=== PATIENT | female | born 1990 | race Hispanic/Latino ===

== ENCOUNTER 2017-06-03 18:05 | Emergency (ER) | payer OTHER ==
[2017-06-03 18:14] VITALS: RESP 16
[2017-06-03] MEDS ORDERED: Albuterol-Ipratrop 3 mg / 0.5 (3 ml) UD INH STA (19:37)
[2017-06-03] MEDS ORDERED: Magnesium Sulfate 2 gm/50 ml 2 GM/50 ML BAG IV STA (19:37)
[2017-06-03] MEDS ORDERED: Promethazine/Cod 6.25mg-10mg/5ml Syr UD PO STA (19:37)
[2017-06-03] MEDS ORDERED: Sodium Chloride 0.9% 1,000 ML IV STA (19:52)
--- NOTE | 2017-06-03 19:59 | ED PDOC ---
HPI: SOB/CHF/COPD Time Seen by Provider: 06/03/17 19:23 Chief Complaint (Nursing): Shortness Of Breath Chief Complaint (Provider): Flu-like symptoms History Per: Patient History/Exam Limitations: no limitations Onset/Duration Of Symptoms: Days (x2) Current Symptoms Are (Timing): Still Present Additional Complaint(s): 26 y/o female with a past medical history of asthma, who presents to the ED complaining of flu-like symptoms x2 days. Patient confirms cough, shortness of breathing, chest tightness, headaches, body aches, and chills. Denies any fever. Patient states she went to [email or web address] yesterday and was given a nebulizer treatment with improvement of symptoms. States her symptoms worsened today and she went to Urgent Care where she was referred to the ED after receiving 2 nebulizer treatments without relief. States she was given a CXR at Urgent Care. Past Medical History Reviewed: Historical Data, Nursing Documentation, Vital Signs Vital Signs: Last Vital Signs Temp 100.0 F H 06/03/17 21:09 Pulse 104 H 06/03/17 18:12 Resp 16 06/03/17 18:12 BP 144/77 06/03/17 18:12 Pulse Ox 100 06/03/17 20:43 - Medical History PMH: Asthma - Surgical History Surgical History: Appendectomy Other surgeries: Tonsillectomy, benign mandibular tumor - Family History Family History: States: Unknown Family Hx - Social History Current smoker - smoking cessation education provided: No Alcohol: None Drugs: Denies - Home Medications Home Medications: Ambulatory Orders Medication Instructions Recorded Albuterol HFA [Ventolin HFA 90 1 - 2 puff IH Q6 PRN #1 inhaler 06/03/17 mcg/actuation (8 g)] Benzonatate [Tessalon Perle] 100 mg PO TID PRN #15 capsule 06/03/17 Methylprednisolone [Medrol Dosepak] 4 mg PO ASDIR #1 pkg 06/03/17 Oseltamivir [Tamiflu] 75 mg PO BID #10 cap 06/03/17 levoFLOXacin [Levaquin] 500 mg PO DAILY #9 tab 06/03/17 - Allergies Allergies/Adverse Reactions: Allergies Allergy/AdvReac Type Severity Reaction Status Date / Time No Known Allergies Allergy Verified 06/03/17 18:12 Review of Systems ROS Statement: Except As Marked, All Systems Reviewed And Found Negative Constitutional: Positive for: Chills, Malaise, Other (body aches). Negative for : Fever Cardiovascular: Positive for: Other (chest tightness) Respiratory: Positive for: Cough, Shortness of Breath Neurological: Positive for: Headache Physical Exam - Reviewed Nursing Documentation Reviewed: Yes Vital Signs Reviewed: Yes (fever) - Physical Exam Appears: Positive for: Non-toxic, No Acute Distress Head Exam: Positive for: ATRAUMATIC, NORMAL INSPECTION, NORMOCEPHALIC Skin: Positive for: Normal Color, Warm, Dry. Negative for: Rash Eye Exam: Positive for: EOMI, Normal appearance, PERRL Neck: Positive for: Normal, Painless ROM, Supple Cardiovascular/Chest: Positive for: Tachycardia. Negative for: Murmur Respiratory: Positive for: Crackles (some present at right base), Wheezing ( bilateral expiratory) Gastrointestinal/Abdominal: Positive for: Normal Exam, Bowel Sounds, Soft. Negative for: Tenderness Back: Positive for: Normal Inspection. Negative for: L CVA Tenderness, R CVA Tenderness, Vertebral Tenderness Extremity: Positive for: Normal ROM. Negative for: Pedal Edema, Deformity Neurologic/Psych: Positive for: Alert, Oriented (x3). Negative for: Motor/ Sensory Deficits - Laboratory Results Result Diagrams: 06/03/17 20:03 06/03/17 20:03 - ECG O2 Sat by Pulse Oximetry: 100 (RA) Pulse Ox Interpretation: Normal Medical Decision Making Medical Decision Making: Time: 19:37 Initial Impression: 26 y/o female with acute cough and SOB in setting of flu- like symptoms Initial Plan: --EKG --CMP --Lact acid, plasma --CBC w/ differential --ED test --Duoneb 9ml INH --Magnesium Sulfate 2gm in 50 ml IV --Fluid bolus --Promethazine/Codeine 10 mg PO --Prednisone 125 mg IVP --Tylenol 975 mg PO --Blood culture --Heplock --Influenza A B --Peak flow pre/post tx --Reevaluation --Provider deferred CXR as patient provided negative report of previous CXR. Time: 21:45 Patient reports marked improvement of symptoms and is medically stable for discharge. Patient will follow up with PMD and states her father is an Orthopedist and has a friend who is a Security Engineer, who she will follow up with as well. Scribe Attestation: Documented by Alton Mckeon, acting as a scribe for Elias Phelps MD. Provider Scribe Attestation: All medical record entries made by the Scribe were at my direction and personally dictated by me. I have reviewed the chart and agree that the record accurately reflects my personal performance of the history, physical exam, medical decision making, and the department course for this patient. I have also personally directed, reviewed, and agree with the discharge instructions and disposition. Disposition - Clinical Impression Clinical Impression: Influenza-like illness, Bronchitis - Patient ED Disposition Is Patient to be Admitted: No Counseled Patient/Family Regarding: Studies Performed, Diagnosis, Need For Followup - Disposition Disposition: Routine/Home Disposition Time: 21:45 Condition: STABLE Prescriptions: Albuterol HFA [Ventolin HFA 90 mcg/actuation (8 g)] 1 - 2 puff IH Q6 PRN #1 inhaler PRN Reason: Shortness Of Breath Benzonatate [Tessalon Perle] 100 mg PO TID PRN #15 capsule PRN Reason: Cough levoFLOXacin [Levaquin] 500 mg PO DAILY #9 tab Methylprednisolone [Medrol Dosepak] 4 mg PO ASDIR #1 pkg Oseltamivir [Tamiflu] 75 mg PO BID #10 cap Instructions: Flu, Acute Bronchitis Forms: [employer] ([place])
[2017-06-03 20:08] LABS: BASO # 0.1 K/uL (0.0-0.2); BASO % 0.8 % (0.0-2.0); EOS % 0.1 % (0.0-4.0); HEMOGLOBIN 14.3 g/dL (12.0-16.0); LYMPH # 0.8 K/uL (1.0-4.3); LYMPH % 6.1 % (20.0-40.0); MEAN CELL VOLUME 93.5 fl (81.0-99.0); MEAN CORPUSCULAR HEMOGLOBIN 31.5 pg (27.0-31.0); MEAN CORPUSCULAR HGB CONC 33.7 g/dL (33.0-37.0); MEAN PLATELET VOLUME 8.7 fl (7.2-11.7); MONO # 0.8 K/uL (0.0-0.8); MONO % 6.7 % (0.0-10.0); NEUT # 10.7 K/uL (1.8-7.0); NEUT % 86.3 % (50.0-75.0); PLATELET COUNT 242 K/uL (130-400); RBC 4.55 Mil/uL (3.80-5.20); RED CELL DISTRIBUTION WIDTH 13.4 % (11.5-14.5); WHITE BLOOD COUNT 12.4 K/uL (4.8-10.8)
[2017-06-03] MEDS ORDERED: Albuterol-Ipratrop 3 mg / 0.5 (3 ml) UD ONE ×2 (20:18→20:31)
[2017-06-03] MEDS ORDERED: Magnesium Sulfate 2 gm/50 ml 2 GM/50 ML BAG ONE (20:19)
[2017-06-03] MEDS ORDERED: Promethazine/Cod 6.25mg-10mg/5ml Syr UD ONE (20:21)
[2017-06-03 20:27] LABS: ALB/GLOB RATIO 1.4 (1.0-2.1); ALBUMIN 5.1 g/dL (3.5-5.0); ALT/SGPT 49 U/L (9-52); AST/SGOT 42 U/L (14-36); BLOOD UREA NITROGEN 15 mg/dl (7-17); CALCIUM 10.5 mg/dL (8.4-10.2); GFR AFRICAN-AMERICAN > 60; GFR NON-AFRICAN AMERICAN > 60
[2017-06-03] MEDS ORDERED: levoFLOXacin 500 MG TAB PO STA (21:11)
[2017-06-03 21:27] LABS: BANDS 2 % (0-2); LYMPHOCYTE 9 % (20-50); MONOCYTE 6 % (0-10); NEUTROPHIL 83 % (42-75); PLATELET ESTIMATE NORMAL (NORMAL); TOTAL CELLS COUNTED 100
[2017-06-03 22:33] VITALS: BP 137/72; PULSE 99; TEMP 98.6; O2SAT 98
--- NOTE | 2017-06-04 13:30 | CARD ---
APPROVED REPORT EKG Measurement Heart [id number] <Conclusion> Sinus tachycardia Otherwise normal ECG
== END 2017-06-03 22:37 | disposition home or self-care (01) ==
LOC: H.ER 18:05
DX: J11.1 Influenza due to unidentified influenza virus with other respiratory manifestations (principal); J40 Bronchitis, not specified as acute or chronic
CPT/HCPCS: 80053; 81025; 83605; 85025; 87040; 87804; 93005; 96365; 96375; 99283; J2930; J7040